=== PATIENT | female | born 1995 | race Caucasian/White ===

== ENCOUNTER 2018-12-15 10:35 | Emergency (ER) | payer SELFPAY ==
[~2018-12-15] VITALS: Ht 165.1 cm; Wt 90.7 kg
[2018-12-15 10:44] VITALS: BP 135/78
--- NOTE | 2018-12-15 10:55 | NUR ---
DR HARVEY AT BEDSIDE
[2018-12-15] MEDS ORDERED: IBUPROFEN 400 MG TAB PO ONE (11:00)
--- NOTE | 2018-12-15 11:00 | NUR ---
23 y female bib self c/o right knee pain when walking s/p fall 12/04/18. patient states she hit her knee on a sprinkler. last tdap unknown. +cms. bruise and healed abrasion to pts r knee. aa0x4. bed is down, locked, bed rail x 1, ermd to see pt. med hx:denies
--- NOTE | 2018-12-15 11:08 | NUR ---
X RAY AT BEDSIDE
--- NOTE | 2018-12-15 11:25 | NUR ---
PT SIGNED CONSENT FORM FOR TDAP, TDAP ADMINISTERED R DELTOID. PT TOLERATED WELL.
[2018-12-15 12:26] VITALS: BP 132/76
--- NOTE | 2018-12-15 12:26 | NUR ---
Patient discharged with v/s stable. Written and verbal after care instructions given and explained. Patient alert, oriented and verbalized understanding of instructions. Ambulatory with steady gait. All questions addressed prior to discharge. ID band removed. Patient advised to follow up with PMD. Rx of NAPROSYN given. INSTRUCTED TO TAKE WITH MEAL. Patient educated on indication of medication including possible reaction and side effects. Opportunity to ask questions provided and answered. PT GIVEN COPY OF XRAY RESULTS.
== END 2018-12-15 12:26 | disposition home or self-care (01) ==
LOC: MED 10:35
DX: S80.01XA Contusion of right knee, initial encounter (principal); R03.0 Elevated blood-pressure reading, without diagnosis of hypertension; E66.9 Obesity, unspecified; W18.39XA Other fall on same level, initial encounter; Y93.89 Activity, other specified; Y92.89 Other specified places as the place of occurrence of the external cause; Y99.8 Other external cause status
CPT/HCPCS: 73562; 90471; 90715; 99283; Q0092

== ENCOUNTER 2019-04-18 14:19 | Emergency (ER) | payer MEDICAID ==
[~2019-04-18] VITALS: Ht 165.1 cm; Wt 102.1 kg
[2019-04-18 14:32] VITALS: BP 133/72
--- NOTE | 2019-04-18 14:50 | NUR ---
PATIENT TO ROOM 8 FROM TRIAGE W/ C/O R UPPER ABD PAIN THAT CARMEN, 12/18 TO TOUCH, NON- RADIATING, ABD SOFT /TENDER TO TOUCH. PAIN BEGAN YESTERDAY. AAOX4, SKIN W/D TO TOUCH JAIN, POS PULSES, NEG EDEMA. PENDING MD CABRERA
--- NOTE | 2019-04-18 15:36 | NUR ---
PATIENT STILL UNABLE TO PRODUCE URINE, 2 GLASS OF WATER GIVEN
[2019-04-18 16:34] LABS: BASOPHILS % (AUTO) 0.5 % (0.0-2.0); EOSINOPHILS # (AUTO) 0.1 K/uL (0-0.4); EOSINOPHILS % (AUTO) 1.5 % (0.0-4.0); HEMATOCRIT 43.2 % (36-48); HEMOGLOBIN 14.1 g/dL (12.0-16.0); LYMPHOCYTES # (AUTO) 2.9 K/uL (2.5-16.5); LYMPHOCYTES % (AUTO) 40.8 % (20.5-51.1); MEAN CORPUSCULAR HEMOGLOBIN 29 pg (27-31); MEAN CORPUSCULAR HGB CONC 33 g/dL (33-37); MEAN CORPUSCULAR VOLUME 90.1 fL (80-94); MONOCYTES # (AUTO) 0.4 K/uL (0.8-1.0); MONOCYTES % (AUTO) 5.4 % (1.7-9.3); NEUTROPHILS # (AUTO) 3.7 K/uL (1.8-7.7); NEUTROPHILS % (AUTO) 51.8 % (42.2-75.2); PLATELET COUNT (AUTO) 348 K/uL (140-450); RED CELL DISTRIBUTION WIDTH 13.5 % (11.6-13.7); WHITE BLOOD COUNT (AUTO) 7.2 K/uL (4.8-10.8)
[2019-04-18 16:40] LABS: ANION GAP 13.9 (8-16); CREATININE 0.8 mg/dL (0.6-1.3); POTASSIUM 3.9 mmol/L (3.5-5.1)
[2019-04-18 16:46] LABS: ALBUMIN 3.7 g/dL (3.4-5.0); TOTAL BILIRUBIN 0.4 mg/dL (0.0-1.0)
--- NOTE | 2019-04-18 17:30 | NUR ---
Patient discharged with v/s stable. Written and verbal after care instructions given and explained. Patient alert, oriented and verbalized understanding of instructions. Ambulatory with steady gait. All questions addressed prior to discharge. ID band removed. Patient advised to follow up with PMD. Rx of zofran and omeprazole given. Patient educated on indication of medication including possible reaction and side effects. Opportunity to ask questions provided and answered.
[2019-04-18 17:31] VITALS: BP 117/78
== END 2019-04-18 17:30 | disposition home or self-care (01) ==
LOC: MED 14:19
DX: K29.70 Gastritis, unspecified, without bleeding (principal)
CPT/HCPCS: 36415; 76705; 80053; 81002; 81025; 83690; 85025; 99284; Q0092

== ENCOUNTER 2019-05-09 14:58 | Emergency (ER) | payer MEDICAID ==
[~2019-05-09] VITALS: Ht 162.6 cm; Wt 100.2 kg
[2019-05-09 15:08] VITALS: BP 121/66
--- NOTE | 2019-05-09 15:11 | NUR ---
PT TO ER LOBBY. VS STABLE. PT ALERT AND AWAKE
--- NOTE | 2019-05-09 15:16 | NUR ---
PT TO CHAIR C
--- NOTE | 2019-05-09 15:22 | NUR ---
C/O PRODUCTIVE COUGH, SORE THROAT, H/A, RINORRHEA, NASAL CONGESTION, LT EAR PAIN X 2 DAYS. N/V X 1 YESTERDAY. HAD FLU VACCINATION THIS YEAR. STATES WAS HERE A FEW DAYS AGO, HAD ABD US, SAW LESION ON LIVER, WAS TOLD TO F/U WITH PCP BUT WAS UNABLE TO. REQUESTING FOR CT SCAN TODAY. HX- LIVER LESION
--- NOTE | 2019-05-09 16:01 | NUR ---
PT TO BED 05 WITH STEADY GAIT
--- NOTE | 2019-05-09 16:24 | NUR ---
PA ALIYA VERNON AT BEDSIDE EVALUATING AAO X4 PT
[2019-05-09 17:02] VITALS: BP 115/55
--- NOTE | 2019-05-09 17:02 | NUR ---
Patient discharged with v/s stable. Written and verbal after care instructions given and explained. Patient alert, oriented and verbalized understanding of instructions. Ambulatory with steady gait. All questions addressed prior to discharge. ID band removed. Patient advised to follow up with PMD. Rx of Flonase, Ibuprofen, Promethazine given. Patient educated on indication of medication including possible reaction and side effects. Opportunity to ask questions provided and answered.
== END 2019-05-09 17:02 | disposition home or self-care (01) ==
LOC: MED 14:58
DX: J06.9 Acute upper respiratory infection, unspecified (principal); K76.89 Other specified diseases of liver
CPT/HCPCS: 99283

== ENCOUNTER 2020-04-26 12:30 | Emergency (ER) | payer MEDICAID, OTHER ==
[~2020-04-26] VITALS: Ht 165.1 cm; Wt 90.7 kg
[2020-04-26 12:31] VITALS: BP 148/70
--- NOTE | 2020-04-26 13:00 | NUR ---
C/O LUMP ON RIGHT BREAST X 2 DAYS. PMH: DENIES
[2020-04-26 15:16] VITALS: BP 148/70
--- NOTE | 2020-04-26 15:16 | NUR ---
Patient discharged with v/s stable. Written and verbal after care instructions given and explained. Patient verbalized understanding. Ambulatory with steady gait. All questions addressed prior to discharge. Advised to follow up with PMD.
== END 2020-04-26 15:16 | disposition home or self-care (01) ==
LOC: MED 12:30
DX: N64.4 Mastodynia (principal)
CPT/HCPCS: 99281

== ENCOUNTER 2020-06-27 12:19 | Emergency (ER) | payer OTHER ==
[~2020-06-27] VITALS: Ht 162.6 cm; Wt 107.0 kg
[2020-06-27 12:23] VITALS: BP 128/64
--- NOTE | 2020-06-27 12:25 | NUR ---
PATIENT AMBULATED TO BED 12 WITH STEADY/EVEN GAIT.
--- NOTE | 2020-06-27 12:29 | NUR ---
25 Y/O F BROUGHT IN FROM HOME WITH C/C ABDOMINAL PAIN X 1 WEEK. PT STATES A WEEK AGO, SHE FELT "A BALL AROUND MY BELLY BUTTON." PT VERBALIZES SHE WENT TO BE SEEN BY HER PRIMARY CARE PHYSICIAN ON THURSDAY 06/22, AND WAS REFERRED BY HER MD TO GO VISIT AN ER TO RULE OUT UMBILICAL HERNIA. PT STATES PAIN 7/10, THROBBING/INTERMITTENT, NON-RADIATING PAIN ABOVE HER UMBILICUS. BOWEL SOUNDS NORMOACTIVE X 4 QUADRANTS. PT DENIES TAKING ANY MEDICATION PRIOR TO ARRIVAL. PT DENIES N/V/D, PAINFUL URINATION, BACK PAIN, CHEST PAIN, SOB, FEVER/CHILLS, COLD-LIKE SYMPTOMS. STATES NORMAL BOWEL MOVEMENT, LAST THIS MORNING. PT PLACED ONTO CARDIAC MONTIOR, BED LOCKED IN LOWEST POSITION, SIDE RAILS X 1, CALL LIGHT IN REACH PMH/MEDS: DENIES NKA
--- NOTE | 2020-06-27 13:26 | NUR ---
Pt ambulated to restroom for UA collection.
--- NOTE | 2020-06-27 13:51 | NUR ---
PT RESTING IN POSITION OF COMFORT; ON PHONE AT THIS TIME. PAIN 2/10 AT THIS TIME. NO OBVIOUS DISTRESS NOTED. RESPIRATIONS EVEN/UNLABORED. 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 BED LOCKED IN LOWEST POSITION, SIDE RAILS X 1, CALL LIHGT IN REACH.
--- NOTE | 2020-06-27 13:52 | NUR ---
Pt taken to CT via W/C.
--- NOTE | 2020-06-27 13:53 | NUR ---
Acosta ritchie in [facility] - 06/27/20 at 1353 by LISBETH PATIENT TAKEN TO CT VIA WHEELCHAIR.
[2020-06-27 14:42] VITALS: BP 128/64
--- NOTE | 2020-06-27 14:43 | NUR ---
Patient discharged with v/s stable. Written and verbal after care instructions given and explained. Patient alert, oriented and verbalized understanding of instructions. Ambulatory with steady gait. All questions addressed prior to discharge. ID band removed. Patient advised to follow up with PMD. Rx of keflex 500mg QID PO given. Patient educated on indication of medication including possible reaction and side effects. Opportunity to ask questions provided and answered.
== END 2020-06-27 14:43 | disposition home or self-care (01) ==
LOC: MED 12:19
DX: R10.33 Periumbilical pain (principal); R22.2 Localized swelling, mass and lump, trunk
CPT/HCPCS: 81025; 99284

== ENCOUNTER 2021-07-13 23:51 | Emergency (ER) | payer OTHER ==
[~2021-07-13] VITALS: Ht 165.1 cm; Wt 115.2 kg
[2021-07-13 23:54] VITALS: BP 140/87
--- NOTE | 2021-07-13 23:59 | NUR ---
patient to [facility] ambulatory
--- NOTE | 2021-07-14 00:15 | NUR ---
RECEIVED IN BED 2 WITH C/O CP WHICH STARTED YESTERDAY. 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 RESPIRATIONS NOW ARE REGULAR AND UNLABORED pmh: nabil mckeon
--- NOTE | 2021-07-14 00:33 | NUR ---
PT TAKEN TO RADIOLOGY
--- NOTE | 2021-07-14 00:40 | NUR ---
pt back from xr and is bed 1
[2021-07-14] MEDS ORDERED: KETOROLAC 30 MG/ML VIAL IM ONE (01:25)
--- NOTE | 2021-07-14 02:00 | NUR ---
RESTING COMFORTABLY WITH NO COMPLAINTS
[2021-07-14] MEDS ORDERED: NAPR-54 PO (03:01)
== END 2021-07-14 03:04 | disposition home or self-care (01) ==
LOC: MED 23:51
DX: R07.89 Other chest pain (principal); R06.02 Shortness of breath; Z79.899 Other long term (current) drug therapy
CPT/HCPCS: 71045; 93005; 96372; 99283; J1885

== ENCOUNTER 2022-01-05 10:58 | Emergency (ER) | payer OTHER ==
[~2022-01-05] VITALS: Ht 165.1 cm; Wt 113.4 kg
[~2022-01-05 10:58] MED LIST: NAPR-54 PO
[2022-01-05 11:06] VITALS: BP 147/80
[2022-01-05] MEDS ORDERED: IBUPROFEN 800 MG TAB PO ONE (11:45)
--- NOTE | 2022-01-05 12:09 | NUR ---
PA CARBAJAL AT PT SIDE FOR EVAL
--- NOTE | 2022-01-05 14:22 | NUR ---
PT AMBULATED TO ER BED 9
[2022-01-05 15:00] VITALS: BP 128/89
--- NOTE | 2022-01-05 15:01 | NUR ---
PA CARBAJAL AT BEDSIDE EVALUATING PT
[2022-01-05] MEDS ORDERED: LIDOCAINE MPF 1% 10 MG/ML VIAL INJ ONE (15:05)
--- NOTE | 2022-01-05 15:44 | NUR ---
4x4 non adhesive gauze applied and taped in place - r underarm
--- NOTE | 2022-01-05 15:55 | NUR ---
Patient discharged with v/s stable. Written and verbal after care instructions given and explained. Patient verbalized understanding. Ambulatory with steady gait. All questions addressed prior to discharge. Advised to follow up with PMD. work note provided
== END 2022-01-05 15:55 | disposition home or self-care (01) ==
LOC: MED 10:58
DX: L02.411 Cutaneous abscess of right axilla (principal); Z79.899 Other long term (current) drug therapy
CPT/HCPCS: 10060; 99284; J2001